=== PATIENT | male | born 1955 | race Caucasian/White ===

== ENCOUNTER 2020-02-21 14:18 | Emergency (ER) | payer MEDICARE, OTHER, MEDICAID ==
[~2020-02-21] VITALS: Ht 175.3 cm; Wt 84.4 kg
--- OUTSIDE RECORDS SUMMARY | ~2020-02-21 | XMS | Encounter Summary ---
Demographics + + + | Address | [address] | | | [place] [address] | + + + | Home Phone | | + + + | Preferred Language | Unknown | + + + | Marital Status | | + + + | Christian Affiliation | Unknown | + + + | Race | Unknown | + + + | Ethnic Group | Unknown | + + + Author + + + | Author | [facility] | | | and [place] | + + + | Organization | [facility] | | | and [place] | + + + | Address | Unknown | + + + | Phone | Unavailable | + + + Support + + + + + | Name | Relationship | Address | Phone | + + + + + | Nannette Ramsey | [address] | [address] | | | | [place] | | | | | [place] [address] | | + + + + + Care Team Providers + +------+ + | Care Ed Physicians Name | Role | Phone | + +------+ + | Josie Moffett PA-C | PCP | | + +------+ + Encounter Details +--------+ + + + + | Date | Type | Department | Care Team | Description | +--------+ + + + + | 02/12/ | Orders Only | [facility] | Joseluis Shaffer MD | | | 2014 | | VASCULAR SURGERY | [address] | | | | | [address] | [place], [place] | | | | | [address] | [address] | | | | | [place], [place] | [phone] | | | | | [address] | | | | | | [phone] | | | +--------+ + + + [...] on file | | + + + + + + + | Job Start Date | Occupation | Industry | + + + + | Not on file | Not on file | Not on file | + + + + + + + + | Travel History | Travel Start | Travel End | + + + + + + | No recent travel history available. | + + documented as of this encounter [...]
--- OUTSIDE RECORDS SUMMARY | ~2020-02-21 | XMS | Encounter Summary ---
Demographics + + + | Address | [address] | | | [place] [address] | + + + | Home Phone | | + + + | Preferred Language | Unknown | + + + | Marital Status | | + + + | Restorationist Affiliation | Unknown | + + + | Race | Unknown | + + + | Ethnic Group | Unknown | + + + Author + + + | Author | [facility] | | | and [place] | + + + | Organization | [facility] | | | and [...] [place] | | | | | [place] [address] | | + + + + + Care Team Providers + +------+ + | Care Sales Trader Name | Role | Phone | + +------+ + | Josie Moffett PA-C | PCP | | + +------+ + Encounter Details +--------+ + + + + | Date | Type | Department | Care Team | Description | +--------+ + + + + | 02/12/ | Orders Only | [facility] | Joseluis Shaffer MD | | | 2014 | | VASCULAR SURGERY | [address] | | | | | [address] | [place], [place] | | | | | [address] | [address] | | | | | [place], [place] | [phone] | | | | | [address] | | | | | | [phone] | | | +--------+ + + + [...] + +--------+ + + + | VAS LOWER EXTREMITY | Routin | 12/06/2014 | | Results for this | | ARTERIES BILATERAL | e | 3:00 PM | | procedure are in the | | | | PST | | results section. | + +--------+ + + + documented in this encounter Results VAS Lower Extremity Arteries Bilateral (12/06/2014 3:00 PM PST) + + | Specimen | + + | | + + + + + | Impressions | Performed At | + + + | IMPRESSION : 1. Some narrowing along the mid left SFA stent, but | | | probably less than 50% 2. 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 In circumstances | | | where there is rest pain or tissue loss, typically interventional | | | consultation is recommended. In circumstances where there is | | | claudication, CTA or MRI is appropriate - especially if an | | | underlying treatable lesion is suspect. Ankle brachial index | | | evaluation can compliment this screening modality. Electronically | | | signed by Bowen Root MD on 12/06/2014 3:48 PM | | + + + + + + | Narrative | Performed At | + + + | HISTORY: 59 -year old male with vascular disease, prior | | | thromboembolism and stent TECHNIQUE : Screening ultrasound of the | | | bilateral lower extremity arterial systems. True duplex examination | | | with grayscale, color flow and Doppler imaging. No prior study for | | | comparison FINDINGS : Left system Velocities: Peak | | | velocity is 182 cm/s, mid femoral artery. No velocity doublings. | | | Correlates with a stent, probably represents a luminal narrowing but | | | less than 50% Visual inspection: No high-grade or preocclusive | | | lesion Waveforms: Triphasic and biphasic throughout Right | | | system Velocities: Peak velocity of 100 cm above the knee, | | | anterior tibial vessel is 384 cm/s however. Visual inspection: | | | Reveals atherosclerotic vascular disease multifocal plaque, but no | | | preocclusive lesion Waveforms: Are biphasic and triphasic | | | throughout Other salient or incidental findings : none. | | + + + + + | Procedure Note | + + | Lemuel, Rad Conversion - 06/15/2019 11:50 PM PDT HISTORY: 59 -year old male with | | vascular disease, prior thromboembolism and stent TECHNIQUE : Screening ultrasound of | | the bilateral lower extremity arterial systems. True duplex examination with grayscale, | | color flow and Doppler imaging. No prior study for comparison FINDINGS : Left system | | Velocities: Peak velocity is 182 cm/s, mid femoral artery. No velocity doublings. | | Correlates with a stent, probably represents a luminal narrowing but less than 50% | | Visual inspection: No high-grade or preocclusive lesion Waveforms: Triphasic and | | biphasic throughout Right system Velocities: Peak velocity of 100 cm above the knee, | | anterior tibial vessel is 384 cm/s however. Visual inspection: Reveals atherosclerotic | | vascular disease multifocal plaque, but no preocclusive lesion Waveforms: Are biphasic | | and triphasic throughout Other salient or incidental findings : none. IMPRESSION: | | IMPRESSION : 1. Some narrowing along the mid left SFA stent, but probably less than 50% | | 2. Velocity elevation of the right anterior tibial artery, likely evidence of | | significant tributary disease below the right knee Note : The clinical impression is at | | least as important as this screening modality. In circumstances where there is rest | | pain or tissue loss, typically interventional consultation is recommended. In | | circumstances where there is claudication, CTA or MRI is appropriate - especially if an | | underlying treatable lesion is suspect. Ankle brachial index evaluation can compliment | | this screening modality. | | 3:48 PM | |Visual inspection: Reveals atherosclerotic vascular disease multifocal plaque, but no preoc clusive lesion | | | |Waveforms: Are biphasic and triphasic throughout | | | |Other salient or incidental findings : none. | | | |IMPRESSION: | |IMPRESSION : | | | |1. Some narrowing along the mid left SFA stent, but probably less than 50% | | | |2. Velocity elevation of the right anterior tibial artery, likely evidence of significant t ributary disease below the right knee | | | | | |Note : The clinical impression is at least as important as this screening modality. In circ umstances where there is rest pain or tissue loss, typically interventional consultation is recommended. In circumstances | |where there is claudication, CTA or MRI | |is appropriate - especially if an underlying treatable lesion is suspect. Ankle brachial in dex evaluation can compliment this screening modality. | | | | | + + documented in this encounter Visit Diagnoses Not on filedocumented in this encounter"
--- OUTSIDE RECORDS SUMMARY | ~2020-02-21 | XMS | Clinical Summary ---
Demographics + + + | Address | [address] | | | [place] [address] | + + + | Home Phone | | + + + | Preferred Language | Unknown | + + + | Marital Status | | + + + | Yazdanism Affiliation | Unknown | + + + | Race | Unknown | + + + | Ethnic Group | Unknown | + + + Author + + + | Author | [facility] | | | and [place] | + + + | Organization | [facility] | | | and [...] [place], | | | | | [place] [address] | | + + + + + Care Team Providers + +------+ + | Care Hemotherapist Name | Role | Phone | + [...] recent travel history available. | + + Last Filed Vital Signs Not on file Plan of Treatment + + + + + | Health Maintenance | Due Date | Last Done | Comments | + + + + + | Vaccine: | | | | | Dtap/Tdap/Td (1 - | 4 | | | | Tdap) | | | | + + + + + | Vaccine: Zoster (1 | | | | | of 2) | 3 | | | + + + + + | Vaccine: | | | | | Pneumococcal 65+ (1 | 8 | | | | of 2 - PCV13) | | | | + + + + + | Vaccine: Influenza | | | | | (Season Ended) | 0 | | | + + + + + Results Not on filefrom Last 3 [...] +--------+ +---------+------+ | [facility] | HEALTH | [id number] | 06/25/20 | [phone] | | PPO | | | COMP [...] [birth year] | | [address] | | 1955 | [phone] | [address] [place], | | | [place] | | | [address] ([address]) | [place] [address] | + +--------+ +--------+ + + Advance Directives + + + + + | Type | Date Recorded | Patient | Explanation | | | | Time Study Statistician | | + + + + + | Power of | | | | | Night Worker | | | | + + + + + | Advance | | | | | Directive | | | | + + + + +"
--- OUTSIDE RECORDS SUMMARY | ~2020-02-21 | XMS | Encounter Summary ---
Demographics + + + | Address | [address] | | | [place] [address] | + + + | Home Phone | | + + + | Preferred Language | Unknown | + + + | Marital Status | | + + + | Judaism Affiliation | Unknown | + + + | Race | Unknown | + + + | Ethnic Group | Unknown | + + + Author + + + | Author | [facility] | | | and [place] | + + + | Organization | [facility] | | | and [...] [place], | | | | | [place] [address] | | + + + + + Care Team Providers + +------+ + | Care Edge Burnisher Name | Role | Phone | + +------+ + PCP | Unavailable | + +------+ + Encounter Details +--------+ + + + + | Date | Type | Department | Care Team | Description | +--------+ + + + + | 03/30/ | Hospital | LOCATED WITHIN [facility] | [place], | | | 2012 - | Encounter | [facility] | Marisol Lopez, | | | | | CARE FLOOR [address] | [address] | | | 04/01/ | | [address] | [address], | | | 2012 | | [place], [place] | [place] [address] | | | | | [address] | [phone] | | | | | [phone] | | | +--------+ + + + + Social History + +-------+ +--------+------+ | Tobacco Use | Types | Packs/Day | Years | Date | | | | | Used | | + +-------+ +--------+------+ | Never Assessed | | | | | + +-------+ [...] + + documented as of this encounter Discharge Summaries Marisol Pedraza MD - 04/01/2013 9:24 AM PDTFormatting of this note might be dif ferent from the original. Discharge Summaries by Marisol Pedraza MD at 04/01/13923 Author: Marisol Pedraza MD Service: (none) Author Type: Physician Filed: 04/14/13 1328 Date of Service: 04/01/13923 Status: Signed Statue Carver: Marisol Pedraza MD (Physician) Related Notes: Original Note by Marisol Pedraza MD (Physician) filed at 04/01/1307 19 DIAGNOSIS Acute anterior myocardial infarction. REASON FOR ADMISSION This is a 57-year-old white male with no prior medical history who began experiencing subst ernal heaviness earlier on the day of admission, presented to the emergency room in [facility]. He was shown to have an ST elevation anterior CO. He was heparinized, placed on a nitrogl ycerin drip with some improvement in his chest pain and transported here by ambulance. He wa s taken straight to the catheterization lab. HOSPITAL COURSE In the catheterization lab he was found to have a totally occluded left anterior descending which was opened and stented with drug-eluting stents with moderate difficulty. He had a pe ak CPK of 4200 and no recurrent chest discomfort. He was felt ready for discharge. Such is d one today. DISCHARGE MEDICATIONS 1. Aspirin 325 mg p.o. daily. 2. Plavix 75 mg p.o. daily. 3. No beta-lionel because of hypotension. 4. No lipid-lowering therapy because of unknown baseline. We will assess that as an outpati ent. documented in this encounter Progress Notes Conversion Transaction, Provider Unknown - 04/01/2013 12:09 PM PDTFormatting of this note m ight be different from the original. Progress Notes by Morenita Sandhu RN at 04/01/13 1209 Author: Morenita Sandhu RN Service: (none) Author Type: Registered Nurse Filed: 04/01/13 1210 Date of Service: 04/01/13 1209 Status: Signed Statue Carver: Morenita Sandhu RN (Registered Nurse) Discharge information reviewed with patient and family, all parties verbalized virgil g. Pt being discharged to private home via private vehicle in stable condition. Silvestre REBOLLEDO onver romain Transaction, Provider Unknown - 03/31/2013 10:15 AM PDT Progress Notes by Morenita Sandhu RN at 03/31/13 1015 Author: Morenita Sandhu RN Service: (none) Author Type: Registered Nurse Filed: 03/31/13 1016 Date of Service: 03/31/13 1015 Status: Signed Statue Carver: Morenita Crader, RN (Registered Nurse) Pt with 8 beats VTACH asymptomatic will continue to monitor. Silvestre RN Marisol Byrd MD - 03/31/2013 8:38 AM PDT Progress Notes by Marisol Pedraza MD at 03/31/13 0838 Author: Marisol Pedraza MD Service: (none) Author Type: Physician Filed: 03/31/1339 Date of Service: 03/31/13837 Status: Signed Statue Carver: Marisol Pedraza MD (Physician) Feels well. NO CP. PK >4000. Increase activity. VSS onversion Transaction, Provider Unknown - 03/30/2013 8:09 PM PDTFormatting of this note might be dif ferent from the original. Progress Notes by Rodolfo Faye RPH at 03/30/132008 Author: Rodolfo Faye RPH Service: (none) Author Type: Pharmacist Filed: 03/30/132008 Date of Service: 03/30/132008 Status: Signed Statue Carver: Rodolfo Faye RPH (Pharmacist) Note ccl 63.1ml/min meds reviewed Pharmacy will follow rdc 2008 Marisol Byrd MD - 03/30/2013 6:46 PM PDT Progress Notes by Marisol Pedraza MD at 03/30/131845 Author: Marisol Pedraza MD Service: (none) Author Type: Physician Filed: 03/30/131845 Date of Service: 03/30/131845 Status: Signed Statue Carver: Marisol Pedraza MD (Physician) Cath done and dictated. MARCO A to LAD documented in this encounter Plan of Treatment Not on filedocumented as of this encounter Procedures + +--------+ + + + | Procedure Name | Priori | Date/Time | Associated Diagnosis | Comments | | | ty | | | | + +--------+ + + + | ECG 12 LEAD | Routin | 03/31/2013 | | Results for this | | | e | 5:03 AM | | procedure are in the | | | | PDT | | results section. | + +--------+ + + + | CV CARDIAC PROCEDURE | Routin | 03/30/2013 | | Results for this | | | e | 6:44 PM | | procedure are in the | | | | PDT | | results section. | + +--------+ + + + | CV CARDIAC PROCEDURE | Routin | 03/30/2013 | | Results for this | | | e | 6:44 PM | | procedure are in the | | | | PDT | | results section. | + +--------+ + + + documented in this encounter Results ECG 12 lead (03/31/2013 5:03 AM PDT) + + + + + + | Component | Value | Ref Range | Performed | Pathologist | | | | | At | Signature | + + + + + + | DIAGNOSIS: | Normal sinus | | EXTERNAL | | | | rhythmAnteroseptal | | LAB | | | | infarct likely recent | | | | | | ACUTE CO / STEMI | | | | | | Abnormal ECGNo | | | | | | previous ECGs | | | | | | availableConfirmed by | | | | | | ISAAK DOWNS ([id number]) on | | | | | | 04/01/2013 2:26:32 PM | | | | + + + + + + + + | Specimen | + + | | + + + + + | Narrative | Performed At | + + + | Historically [facility] [place] [facility] | EXTERNAL LAB | + + + + +---------+ + + | Performing | Address | City/State/Zipcode | Phone Number | | Organization | | | | + +---------+ + + | EXTERNAL LAB | | | | + +---------+ + + CV CARDIAC PROCEDURE (03/30/2013 6:44 PM PDT) + + | Specimen | + + | | + + + + + | Narrative | Performed At | + + + | | | | | | | PROCEDURES 1. Left heart catheterization. 2. Coronary angiography. | | | 3. Intracoronary stent implantation to left anterior descending | | | coronary artery. RESULTS 1. Aortic pressure is 106/74, with a | | | mean of 87. 2. Left ventricular pressure is 113/12, with an EDP of | | | 30. ARTERIOGRAPHY 1. Left main coronary artery is normal. 2. | | | Left circumflex shows minor nonobstructive disease. 3. Left anterior | | | descending is totally occluded just after the takeoff of a very high | | | first diagonal and large septal penetrator. 4. Right coronary artery | | | is angiographically unremarkable. LEFT VENTRICULOGRAM Left | | | ventriculogram done after intervention shows mild anterior | | | hypokinesis, overall ejection fraction is normal at 60%. | | | IMPRESSION Severe 1 vessel coronary disease. I elected to intervene | | | upon this. DESCRIPTION OF PROCEDURE A 6-Tongan XB LAD 3.5 guide | | | catheter was placed in the left main coronary os and an 0.014 Weight Guesser | | | 50 guidewire was advanced down the left anterior descending with | | | considerable difficulty. When I had felt that I had crossed the | | | lesion I took a 2 x 15 mm [place] angioplasty balloon and crossed about | | | 1 cm beyond the area of total occlusion. I could not easily get any | | | farther. I inflated it there to about 6 atmospheres and made no | | | improvement. I withdrew the wire and repositioned. I found another | | | channel and I felt the wire was pretty safely in a septal penetrator, | | | and so I took the same balloon down and advanced it, this time, much | | | more easily beyond the lesion. Inflated it up to 10 atmospheres for | | | 20 seconds. This did restore flow throughout the distal vessel which | | | was diffusely diseased in the midportion. I repositioned the wire out | | | the distal LAD and took the same balloon and inflated it in several | | | positions between 6 and 8 atmospheres for 10 to 20 seconds each. | | | There was still significant residual stenosis throughout so I took | | | 200 mcg of IV nitroglycerin, placed it intracoronary, and there was | | | some but not much improvement. A 2.75 x 28 mm Promus Element stent | | | catheter was advanced to the distal portion of the lesion. Position | | | with cine assistance, inflated up to 11 atmospheres for 20 seconds, | | | deflated, re-inflated 10 atmospheres for 10 seconds, then smooth | | | withdrawn. This did improve the distal portion, however there is | | | still significant stenosis proximally, so a 3 x 16 mm Promus Element | | | stent catheter was positioned just to abut the previously placed | | | stent in the proximal to midportion of the LAD. Inflated again up to | | | 11 atmospheres for 20 seconds, deflated. The balloon was slightly | | | advanced so it covered both stents and inflated up to 10 atmospheres | | | for 10 seconds. Hand injection showed excellent results with DENA | | | grade III flow at that time. There was still an issue of some | | | haziness in the proximal LAD, so I took the same balloon that I had | | | just used to inflate the 3-0 stent and inflated it more proximally to | | | 6 atmospheres for 20 seconds and then withdrew it. Hand injection | | | showed no change whatsoever. There was still DENA grade III flow so I | | | decided to leave that alone. Pharmacologically he came in on a | | | heparin drip. He was given an additional 2000 units with the sheath | | | insertion. ACT in the diagnostic portion was 199 seconds. He was given | | | an additional 3000 units of intravascular heparin. ACT is pending | | | postprocedure. He was begun on a double bolus and drip of Integrilin | | | at the beginning of the interventional portion of the case and orally | | | loaded with Plavix at the termination of the case. ESTIMATED | | | BLOOD LOSS Less than 50 mL. Read by MARISOL PEDRAZA MD | | | 03/30/2013 06:39 P | | + + + + + | Procedure Note | + + | Avinash Hdez - 06/16/2019 6:31 PM PDT | | | | PROCEDURES | | 1. Left heart catheterization. | | 2. Coronary angiography. | | 3. Intracoronary stent implantation to left anterior descending coronary | | artery. | | | | RESULTS | | 1. Aortic pressure is 106/74, with a mean of 87. | | 2. Left ventricular pressure is 113/12, with an EDP of 30. | | | | ARTERIOGRAPHY | | 1. Left main coronary artery is normal. | | 2. Left circumflex shows minor nonobstructive disease. | | 3. Left anterior descending is totally occluded just after the takeoff of | | a very high first diagonal and large septal penetrator. | | 4. Right coronary artery is angiographically unremarkable. | | | | LEFT VENTRICULOGRAM | | Left ventriculogram done after intervention shows mild anterior | | hypokinesis, overall ejection fraction is normal at 60%. | | | | IMPRESSION | | Severe 1 vessel coronary disease. I elected to intervene upon this. | | | | DESCRIPTION OF PROCEDURE | | A 6-Tongan XB LAD 3.5 guide catheter was placed in the left main coronary | | os and an 0.014 Weight Guesser 50 guidewire was advanced down the left anterior | | descending with considerable difficulty. When I had felt that I had | | crossed the lesion I took a 2 x 15 mm [place] angioplasty balloon and crossed | | about 1 cm beyond the area of total occlusion. I could not easily get any | | farther. I inflated it there to about 6 atmospheres and made no | | improvement. I withdrew the wire and repositioned. I found another channel | | and I felt the wire was pretty safely in a septal penetrator, and so I | | took the same balloon down and advanced it, this time, much more easily | | beyond the lesion. Inflated it up to 10 atmospheres for 20 seconds. This | | did restore flow throughout the distal vessel which was diffusely diseased | | in the midportion. I repositioned the wire out the distal LAD and took the | | same balloon and inflated it in several positions between 6 and 8 | | atmospheres for 10 to 20 seconds each. There was still significant | | residual stenosis throughout so I took 200 mcg of IV nitroglycerin, placed | | it intracoronary, and there was some but not much improvement. A 2.75 x 28 | | mm Promus Element stent catheter was advanced to the distal portion of the | | lesion. Position with cine assistance, inflated up to 11 atmospheres for | | 20 seconds, deflated, re-inflated 10 atmospheres for 10 seconds, then | | smooth withdrawn. | | | | This did improve the distal portion, however there is still significant | | stenosis proximally, so a 3 x 16 mm Promus Element stent catheter was | | positioned just to abut the previously placed stent in the proximal to | | midportion of the LAD. Inflated again up to 11 atmospheres for 20 seconds, | | deflated. The balloon was slightly advanced so it covered both stents and | | inflated up to 10 atmospheres for 10 seconds. Hand injection showed | | excellent results with DENA grade III flow at that time. There was still | | an issue of some haziness in the proximal LAD, so I took the same balloon | | that I had just used to inflate the 3-0 stent and inflated it more | | proximally to 6 atmospheres for 20 seconds and then withdrew it. Hand | | injection showed no change whatsoever. There was still DENA grade III flow | | so I decided to leave that alone. Pharmacologically he came in on a | | heparin drip. He was given an additional 2000 units with the sheath | | insertion. ACT in the diagnostic portion was 199 seconds. He was given an | | additional 3000 units of intravascular heparin. ACT is pending | | postprocedure. He was begun on a double bolus and drip of Integrilin at | | the beginning of the interventional portion of the case and orally loaded | | with Plavix at the termination of the case. | | | | ESTIMATED BLOOD LOSS | | Less than 50 mL. | | Read by MARISOL PEDRAZA MD 03/30/2013 06:39 P | | | | | + + CV CARDIAC PROCEDURE (03/30/2013 6:44 PM PDT) + + | Specimen | + + | | + + + + + | Narrative | Performed At | + + + | | | | | | | PROCEDURES 1. Left heart catheterization. 2. Coronary angiography. | | | 3. Intracoronary stent implantation to left anterior descending | | | coronary artery. RESULTS 1. Aortic pressure is 106/74, with a | | | mean of 87. 2. Left ventricular pressure is 113/12, with an EDP of | | | 30. ARTERIOGRAPHY 1. Left main coronary artery is normal. 2. | | | Left circumflex shows minor nonobstructive disease. 3. Left anterior | | | descending is totally occluded just after the takeoff of a very high | | | first diagonal and large septal penetrator. 4. Right coronary artery | | | is angiographically unremarkable. LEFT VENTRICULOGRAM Left | | | ventriculogram done after intervention shows mild anterior | | | hypokinesis, overall ejection fraction is normal at 60%. | | | IMPRESSION Severe 1 vessel coronary disease. I elected to intervene | | | upon this. DESCRIPTION OF PROCEDURE A 6-Tongan XB LAD 3.5 guide | | | catheter was placed in the left main coronary os and an 0.014 Weight Guesser | | | 50 guidewire was advanced down the left anterior descending with | | | considerable difficulty. When I had felt that I had crossed the | | | lesion I took a 2 x 15 mm [place] angioplasty balloon and crossed about | | | 1 cm beyond the area of total occlusion. I could not easily get any | | | farther. I inflated it there to about 6 atmospheres and made no | | | improvement. I withdrew the wire and repositioned. I found another | | | channel and I felt the wire was pretty safely in a septal penetrator, | | | and so I took the same balloon down and advanced it, this time, much | | | more easily beyond the lesion. Inflated it up to 10 atmospheres for | | | 20 seconds. This did restore flow throughout the distal vessel which | | | was diffusely diseased in the midportion. I repositioned the wire out | | | the distal LAD and took the same balloon and inflated it in several | | | positions between 6 and 8 atmospheres for 10 to 20 seconds each. | | | There was still significant residual stenosis throughout so I took | | | 200 mcg of IV nitroglycerin, placed it intracoronary, and there was | | | some but not much improvement. A 2.75 x 28 mm Promus Element stent | | | catheter was advanced to the distal portion of the lesion. Position | | | with cine assistance, inflated up to 11 atmospheres for 20 seconds, | | | deflated, re-inflated 10 atmospheres for 10 seconds, then smooth | | | withdrawn. This did improve the distal portion, however there is | | | still significant stenosis proximally, so a 3 x 16 mm Promus Element | | | stent catheter was positioned just to abut the previously placed | | | stent in the proximal to midportion of the LAD. Inflated again up to | | | 11 atmospheres for 20 seconds, deflated. The balloon was slightly | | | advanced so it covered both stents and inflated up to 10 atmospheres | | | for 10 seconds. Hand injection showed excellent results with DENA | | | grade III flow at that time. There was still an issue of some | | | haziness in the proximal LAD, so I took the same balloon that I had | | | just used to inflate the 3-0 stent and inflated it more proximally to | | | 6 atmospheres for 20 seconds and then withdrew it. Hand injection | | | showed no change whatsoever. There was still DENA grade III flow so I | | | decided to leave that alone. Pharmacologically he came in on a | | | heparin drip. He was given an additional 2000 units with the sheath | | | insertion. ACT in the diagnostic portion was 199 seconds. He was given | | | an additional 3000 units of intravascular heparin. ACT is pending | | | postprocedure. He was begun on a double bolus and drip of Integrilin | | | at the beginning of the interventional portion of the case and orally | | | loaded with Plavix at the termination of the case. ESTIMATED | | | BLOOD LOSS Less than 50 mL. Read by MARISOL PEDRAZA MD | | | 03/30/2013 06:39 P | | + + + + + | Procedure Note | + + | Lemuel, Avinash Conversion - 06/16/2019 6:31 PM PDT | | | | PROCEDURES | | 1. Left heart catheterization. | | 2. Coronary angiography. | | 3. Intracoronary stent implantation to left anterior descending coronary | | artery. | | | | RESULTS | | 1. Aortic pressure is 106/74, with a mean of 87. | | 2. Left ventricular pressure is 113/12, with an EDP of 30. | | | | ARTERIOGRAPHY | | 1. Left main coronary artery is normal. | | 2. Left circumflex shows minor nonobstructive disease. | | 3. Left anterior descending is totally occluded just after the takeoff of | | a very high first diagonal and large septal penetrator. | | 4. Right coronary artery is angiographically unremarkable. | | | | LEFT VENTRICULOGRAM | | Left ventriculogram done after intervention shows mild anterior | | hypokinesis, overall ejection fraction is normal at 60%. | | | | IMPRESSION | | Severe 1 vessel coronary disease. I elected to intervene upon this. | | | | DESCRIPTION OF PROCEDURE | | A 6-Tongan XB LAD 3.5 guide catheter was placed in the left main coronary | | os and an 0.014 Weight Guesser 50 guidewire was advanced down the left anterior | | descending with considerable difficulty. When I had felt that I had | | crossed the lesion I took a 2 x 15 mm [place] angioplasty balloon and crossed | | about 1 cm beyond the area of total occlusion. I could not easily get any | | farther. I inflated it there to about 6 atmospheres and made no | | improvement. I withdrew the wire and repositioned. I found another channel | | and I felt the wire was pretty safely in a septal penetrator, and so I | | took the same balloon down and advanced it, this time, much more easily | | beyond the lesion. Inflated it up to 10 atmospheres for 20 seconds. This | | did restore flow throughout the distal vessel which was diffusely diseased | | in the midportion. I repositioned the wire out the distal LAD and took the | | same balloon and inflated it in several positions between 6 and 8 | | atmospheres for 10 to 20 seconds each. There was still significant | | residual stenosis throughout so I took 200 mcg of IV nitroglycerin, placed | | it intracoronary, and there was some but not much improvement. A 2.75 x 28 | | mm Promus Element stent catheter was advanced to the distal portion of the | | lesion. Position with cine assistance, inflated up to 11 atmospheres for | | 20 seconds, deflated, re-inflated 10 atmospheres for 10 seconds, then | | smooth withdrawn. | | | | This did improve the distal portion, however there is still significant | | stenosis proximally, so a 3 x 16 mm Promus Element stent catheter was | | positioned just to abut the previously placed stent in the proximal to | | midportion of the LAD. Inflated again up to 11 atmospheres for 20 seconds, | | deflated. The balloon was slightly advanced so it covered both stents and | | inflated up to 10 atmospheres for 10 seconds. Hand injection showed | | excellent results with DENA grade III flow at that time. There was still | | an issue of some haziness in the proximal LAD, so I took the same balloon | | that I had just used to inflate the 3-0 stent and inflated it more | | proximally to 6 atmospheres for 20 seconds and then withdrew it. Hand | | injection showed no change whatsoever. There was still DENA grade III flow | | so I decided to leave that alone. Pharmacologically he came in on a | | heparin drip. He was given an additional 2000 units with the sheath | | insertion. ACT in the diagnostic portion was 199 seconds. He was given an | | additional 3000 units of intravascular heparin. ACT is pending | | postprocedure. He was begun on a double bolus and drip of Integrilin at | | the beginning of the interventional portion of the case and orally loaded | | with Plavix at the termination of the case. | | | | ESTIMATED BLOOD LOSS | | Less than 50 mL. | | Read by MARISOL PEDRAZA MD 03/30/2013 06:39 P | | | | | + + documented in this encounter Visit Diagnoses Not on filedocumented in this encounter"
--- OUTSIDE RECORDS SUMMARY | ~2020-02-21 | XMS | Clinical Summary ---
Demographics + + + | Address | [address] | | | [place] [address] | + + + | Home Phone | | + + + | Preferred Language | Unknown | + + + | Marital Status | | + + + | Denominational Affiliation | Unknown | + + + | Race | Unknown | + + + | Ethnic Group | Unknown | + + + Author + + + | Author | [facility] | | | and [place] | + + + | Organization | [facility] | | | [...] [place], | | | | | [place] [address] | | + + + + + Care Team Providers + +------+ + | Care Tier Over Name | Role | Phone | + [...] +--------+ +---------+------+ | [facility] | HEALTH | [phone] | 06/25/20 | [phone] | | PPO [...] | | | 9 (Home) | [place] [address] | + +--------+ +--------+ + + Advance Directives + + + + + | Type | Date Recorded | Patient | Explanation | | | | Administrative Support Clerk | | + + + + + | Power of | | | | | Clay Thrower | | | | + + + + + | Advance | | | | | Directive | | | | + + + + +"
--- OUTSIDE RECORDS SUMMARY | ~2020-02-21 | XMS | Clinical Summary ---
Demographics + + + | Address | [address] | | | [place] [address] | + + + | Home Phone | | + + + | Preferred Language | Unknown | + + + | Marital Status | Single | + + + | Jain Affiliation | Unknown | + + + | Race | Unknown | + + + | Ethnic Group | Unknown | + + + Author + + + | Author | [facility] (Historical as of | | | 06-10-19) | + + + | Organization | [facility] (Historical as of | | | 06-10-19) | + + + | Address | Unknown | + + + | Phone | Unavailable | + + + Support + + + + + | Name | Relationship | Address | Phone | + + + + + | Jennie Molina | ECON | [address] | | | | | [address] | | | | | [address] | | + + + + + | Detailed,Message | ECON | Unknown | | + + + + + Care Team Providers + +------+ + | Care Wood Hacker Name | Role | Phone | + +------+ + | Josie Moffett PA-C | PP | Unavailable | + +------+ + Allergies No Known Allergies Current Medications + + +-------+---------+------+------+-------+ | Prescription | Sig. | Disp. | Refills | Star | End | Statu | | | | | | t | Date | s | | | | | | Date | | | + + +-------+---------+------+------+-------+ | metoprolol | Take 25 mg by mouth | | | | | Activ | | (LOPRESSOR) 25 MG | 2 (two) times daily. | | | | | e | | tablet | | | | | | | + + +-------+---------+------+------+-------+ | lisinopril | Take 5 mg by mouth | | | | | Activ | | (ZESTRIL) 5 MG | daily. | | | | | e | | tablet | | | | | | | + + +-------+---------+------+------+-------+ | atorvastatin | Take 20 mg by mouth | | | | | Activ | | (LIPITOR) 20 MG | nightly. | | | | | e | | tablet | | | | | | | + + +-------+---------+------+------+-------+ | warfarin | Take 5 mg by mouth | | | | | Activ | | (COUMADIN) 5 MG | daily. | | | | | e | | tablet | | | | | | | + + +-------+---------+------+------+-------+ Active Problems Not on file Social History + +-------+ +--------+------+ | Tobacco Use | Types | Packs/Day | Years | Date | | | | | Used | | + +-------+ +--------+------+ | Current Every Day | | 1.5 | 50 | | | Smoker | | | | | + +-------+ +--------+------+ + + +---------+ + | Alcohol Use | Drinks/We | oz/Week | Comments | | | ek | | | + + +---------+ + | No | | | | + + +---------+ + + + + | Sex Assigned at | Date Recorded | | | | + + + | Not on file | | + + + Last Filed Vital Signs + + + + | Vital Sign | Reading | Time Taken | + + + + | Blood Pressure | 147/83 | 12/06/2014 3:51 PM PST | + + + + | Pulse | 51 | 12/06/2014 3:51 PM PST | + + + + | Temperature | 36.5 C (97.7 F) | 12/06/2014 3:51 PM PST | + + + + | Respiratory Rate | 18 | 04/01/2013 11:00 AM PDT | + + + + | Oxygen Saturation | 97% | 08/16/2014 10:53 AM PDT | + + + + | Inhaled Oxygen | - | - | | Concentration | | | + + + + | Weight | 74.8 kg (165 lb) | 12/06/2014 3:51 PM PST | + + + + | Height | 175.3 cm (5' 9.02") | 03/30/2013 6:57 PM PDT | + + + + | Body Mass Index | 24.35 | 12/06/2014 3:51 PM PST | + + + + Plan of Treatment + + + + [...] | | | | | Pneumococcal 65+ | 8 | | | | Low/Medium Risk (1 | | | | | of 2 - PCV13) | | | | + + + + + | Vaccine: Influenza | | | | | (Season Ended) | 0 | | | + + + + + Results Not on filefrom Last 3 Months Insurance + +--------+ +------+-------+---------+ | Payer | Benefi | Subscriber | Type | Phone | Address | | | t Plan | ID | | | | | | / | | | | | | | Group | | | | | + +--------+ +------+-------+---------+ | [employer] | [employer] | [id number] | | | | | | WORK | | | | | + +--------+ +------+-------+---------+ + +--------+ +--------+ + + | Guarantor Name | Accoun | Relation to | Date | Phone | Billing Address | | | t Type | Patient | of | | | | | | | | | | + +--------+ +--------+ + + | JENNIE MOLINA | Person | Self | [birth year] | Home: | [address] | | | [place] | | 1955 | [phone] | [address] [place] | | | [place] | | | [phone] | [phone] | + +--------+ +--------+ + +
--- OUTSIDE RECORDS SUMMARY | ~2020-02-21 | XMS | Encounter Summary ---
Demographics + + + | Address | [address] | | | [place] [address] | + + + | Home Phone | | + + + | Preferred Language | Unknown | + + + | Marital Status | | + + + | Protestant Affiliation | Unknown | + + + | Race | Unknown | + + + | Ethnic Group | Unknown | + + + Author + + + | Author | [facility] | | | and [place] | + + + | Organization | [facility] | | [...] [place] | | | | | [place] [address] | | + + + + + Care Team Providers + +------+ + | Care Mainframe Systems Programmer Name | Role | Phone | + +------+ + | Josie Moffett PA-C | PCP | | + +------+ + Encounter Details +--------+ + + + + | Date | Type | Department | Care Team | Description | +--------+ + + + + | 02/12/ | Orders Only | [facility] | Joseluis Shaffer MD | | | 2014 | | VASCULAR SURGERY | [address] | | | | | [address] | [place], [place] | | | | | [address] | [address] | | | | | [place], [place] | [phone] | | | | | [address] | | | | | | [phone] | | | +--------+ + + + [...]
--- OUTSIDE RECORDS SUMMARY | ~2020-02-21 | XMS | Clinical Summary ---
Demographics + + + | Address | [address] | | | [place] [address] | + + + | Home Phone | | + + + | Preferred Language | Unknown | + + + | Marital Status | Single | + + + | Latter Day Affiliation | Unknown | + + + | Race | Unknown | + + + | Ethnic Group | Unknown | + + + Author + + + | Author | [facility] (Historical as of | | | 06-10-19) | + + + | Organization | [facility] (Historical as of | | | [...] [address] | | | | | [address] | | + + + + + | Detailed,Message | ECON | Unknown | | + + + + + Care Team Providers + +------+ + | Care Scientist Immunology Name | Role | Phone | + [...] +------+-------+---------+ | [employer] | [employer] | [id number] | | | | | | WORK | | | | | + +--------+ +------+-------+---------+ + +--------+ +--------+ + + | Guarantor Name | Accoun | Relation to | Date | Phone | Billing Address | | | t Type | Patient | of | | | | | | | | | | + +--------+ +--------+ + + | JENNEI MOLINA | Person | Self | [birth year] | Home: | [address] | | | [place] | | 1955 | [phone] | [address] [place] | | | [place] | | | [phone] | + +--------+ +--------+ + +
--- OUTSIDE RECORDS SUMMARY | ~2020-02-21 | XMS | Encounter Summary ---
Demographics + + + | Address | [address] | | | [place] [address] | + + + | Home Phone | | + + + | Preferred Language | Unknown | + + + | Marital Status | | + + + | Nondenominational Affiliation | Unknown | + + + | Race | Unknown | + + + | Ethnic Group | Unknown | + + + Author + + + | Author | [facility] | | | and [place] | + + + | Organization | [facility] | | | [...] [place], | | | | | [place] [address] | | + + + + + Care Team Providers + +------+ + | Care Eyelet Maker Name | Role | Phone | + +------+ + PCP | Unavailable | + +------+ + Encounter Details +--------+ + + + + | Date | Type | Department | Care Team | Description | +--------+ + + + + | 03/30/ | Hospital | [facility] | [place], | | | 2012 - | Encounter | [facility] | Marisol Lopez, | | | | | CARE [address] | [address] | | | 04/01/ | | [address] | [address] [place], | | | 2012 | | [place], [place] | [place] [address] | | | | | [address] | [phone] | | | | | [phone] | | | +--------+ + + + [...] 1328 Date of Service: 04/01/13923 Status: Signed Tactical Debriefer Officer: Marisol Pedraza MD (Physician) Related Notes: Original Note by Marisol Pedraza MD (Physician) filed at 04/01/1307 19 DIAGNOSIS Acute anterior myocardial infarction. REASON FOR ADMISSION This is a 57-year-old white male with no prior medical history who began experiencing subst ernal heaviness earlier on the day of admission, presented to the emergency room in [facility]. He was shown to have an ST elevation anterior [place]. He was heparinized, placed on a nitrogl [...] Date of Service: 04/01/13 1209 Status: Signed Tactical Debriefer Officer: Morenita Sandhu RN (Registered Nurse) Discharge information [...] Date of Service: 03/31/13 1015 Status: Signed Tactical Debriefer Officer: Morenita Crader, RN (Registered Nurse) Pt with 8 beats VTACH asymptomatic will continue to monitor. Silvestre RN Marisol Byrd MD - 03/31/2013 8:38 AM PDT Progress Notes by Marisol Pedraza MD at 03/31/13 0838 Author: Marisol Pedraza MD Service: (none) Author Type: Physician Filed: 03/31/1339 Date of Service: 03/31/13837 Status: Signed Tactical Debriefer Officer: Marisol Perdaza MD (Physician) Feels well. NO CP. PK >4000. Increase activity. VSS onversion Transaction, Provider Unknown - 03/30/2013 8:09 PM PDTFormatting of this note might be dif ferent from the original. Progress Notes by Rodolfo Faye RPH at 03/30/132008 Author: Rodolfo Faye RPH Service: (none) Author Type: Pharmacist Filed: 03/30/132008 Date of Service: 03/30/132008 Status: Signed Tactical Debriefer Officer: Rodolfo Faye RPH (Pharmacist) Note ccl 63.1ml/min meds reviewed Pharmacy will follow rdc 2008 Marisol Byrd MD - 03/30/2013 6:46 PM PDT Progress Notes by Marisol Pedraza MD at 03/30/131845 Author: Marisol Pedraza MD Service: (none) Author Type: Physician Filed: 03/30/131845 Date of Service: 03/30/131845 Status: Signed Tactical Debriefer Officer: Marisol Pedraza MD (Physician) Cath done and [...] | | | | | | ACUTE [place] / STEMI | | | | | [...] + + | Historically converted procedure from [facility] Epic environment | EXTERNAL LAB | + [...] | upon this. DESCRIPTION OF PROCEDURE A 6-Nepalese XB LAD 3.5 guide | | | catheter was placed in the left main coronary os and an 0.014 Tunnel Kiln Firer | | | 50 guidewire was advanced down the left anterior descending with | | | considerable difficulty. When I had felt that I had crossed the | | | lesion I took a 2 x 15 mm [place] angioplasty balloon and crossed about | | [...] | DESCRIPTION OF PROCEDURE | | A 6-Nepalese XB LAD 3.5 guide catheter was placed in the left main coronary | | os and an 0.014 Tunnel Kiln Firer 50 guidewire was advanced down the left anterior | | descending with considerable difficulty. When I had felt that I had | | crossed the lesion I took a 2 x 15 mm [place] angioplasty balloon and crossed | | about [...] | upon this. DESCRIPTION OF PROCEDURE A 6-Nepalese XB LAD 3.5 guide | | | catheter was placed in the left main coronary os and an 0.014 Tunnel Kiln Firer | | | 50 guidewire was advanced down the left anterior descending with | | | considerable difficulty. When I had felt that I had crossed the | | | lesion I took a 2 x 15 mm [place] angioplasty balloon and crossed about | | [...] | DESCRIPTION OF PROCEDURE | | A 6-Nepalese XB LAD 3.5 guide catheter was placed in the left main coronary | | os and an 0.014 Tunnel Kiln Firer 50 guidewire was advanced down the left anterior | | descending with considerable difficulty. When I had felt that I had | | crossed the lesion I took a 2 x 15 mm [place] angioplasty balloon and crossed | | about [...]
--- OUTSIDE RECORDS SUMMARY | ~2020-02-21 | XMS | Encounter Summary ---
Demographics + + + | Address | [address] | | | [place] [address] | + + + | Home Phone | | + + + | Preferred Language | Unknown | + + + | Marital Status | | + + + | Anabaptism Affiliation | Unknown | + + + | Race | Unknown | + + + | Ethnic Group | Unknown | + + + Author + + + | Author | [facility] | | | and [place] | + + + | Organization | [facility] | | | [...] [place] | | | | | [place] [address] | | + + + + + Care Team Providers + +------+ + | Care Printer Assistant Name | Role | Phone | + +------+ + | Josie Moffett PA-C | PCP | | + +------+ + Encounter Details +--------+ + + + + | Date | Type | Department | Care Team | Description | +--------+ + + + + | 02/12/ | Orders Only | [facility] | Joseluis Shaffer MD | | | 2014 | | VASCULAR SURGERY | [address] | | | | | [address] | [place], [place] | | | | | [address] | [address] | | | | | [place], [place] | [phone] | | | | | [address] | | | | | | [phone] | | | +--------+ + + + [...]
[~2020-02-21 14:18] MED LIST: BLOOD THINNER PO; CELEBREX200 MG PO; LORTAB 7.5-5001 EACH PO; ROBAXIN-750750 MG PO
[2020-02-21] MEDS ORDERED: METOPROLOL TART25 MG PO (14:26)
[2020-02-21] MEDS ORDERED: WARFARIN SODIUM5 MG PO (14:26)
[2020-02-21] MEDS ORDERED: ATORVASTATIN CA20 MG PO (14:26)
[2020-02-21] MEDS ORDERED: TRAZODONE HCL50 MG PO (14:26)
[2020-02-21] MEDS ORDERED: CYCLOBENZAPRINE10 MG PO (16:28)
== END 2020-02-21 16:34 | disposition home or self-care (01) ==
LOC: ED 14:18
DX: M54.5 Low back pain (principal); I25.2 Old myocardial infarction; F17.200 Nicotine dependence, unspecified, uncomplicated; Z79.899 Other long term (current) drug therapy
CPT/HCPCS: 99283

== ENCOUNTER 2020-08-12 12:27 | Emergency (ER) | payer MEDICARE, OTHER, MEDICAID ==
[~2020-08-12] VITALS: Ht 175.3 cm; Wt 84.4 kg
--- OUTSIDE RECORDS SUMMARY | ~2020-08-12 | XMS | Encounter Summary ---
Demographics + + + | Address | [address] | | | [place] [address] | + + + | Home Phone | | + + + | Preferred Language | Unknown | + + + | Marital Status | | + + + | Taoism Affiliation | Unknown | + + + | Race | White | + + + | Ethnic Group | Not or | + + + Author + + + | Author | [facility] | | | and [place] | + + + | Organization | [facility] | | | and [place] | + + + | Address | Unknown | + + + | Phone | Unavailable | + + + Support + + + + + | Name | Relationship | Address | Phone | + + + + + | Nannette Ramsey | ECON | [address] | | | | [place], | | | | | [place] [address] | | + + + + + Care Team Providers + +------+ + | Care Certified Health Education Specialist Name | Role | Phone | + +------+ + | Josie Moffett PA-C | PCP | | + +------+ + Encounter Details +--------+ + + + + | Date | Type | Department | Care Team | Description | +--------+ + + + + | 12/06/ | Orders Only | [facility] | Joseluis Shaffer MD | | | 2015 | | VASCULAR SURGERY | [address] | | | | | [address] | [place], [place] | | | | | [address] | [address] | | | | | [place], [place] | [phone] | | | | | [address] | | | | | | [phone] | | | +--------+ + + + + Social History + +-------+ +--------+------+ | Tobacco Use | Types | Packs/Day | Years | Date | | | | | Used | | + +-------+ +--------+------+ | Current Every Day | | 1.5 | | | | Smoker | | | | | + +-------+ +--------+------+ + + + | Sex Assigned at | Date Recorded | | | | + + + | Not on file | | + + + documented as of this encounter Plan of Treatment Not on filedocumented as of this encounter Procedures + +--------+ + + + | Procedure Name | Priori | Date/Time | Associated Diagnosis | Comments | | | ty | | | | + +--------+ + + + | VAS CAROTID DUPLEX | Routin | 12/06/2014 | | Results for this | | BILATERAL | e | 3:29 PM | | procedure are in the | | | | PST | | results section. | + +--------+ + + + documented in this encounter Results VAS Carotid Duplex Bilateral (12/06/2014 3:29 PM PST) + + | Specimen | + + | | + + + + + | Impressions | Performed At | + + + | 1. 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 to | | | this modality Grades: 1 Stenosis =01-30% PSV | | | <125 cm/sec EDV (cm/s)<40 cm/sec (mild plaque) 2 | | | Stenosis =31-50% PSV <125 cm/sec EDV (cm/s)<40 cm/sec | | | (moderate plaque) 3 Stenosis =50-69% PSV >125 cm/sec | | | EDV (cm/s)>40 cm/sec 4 Stenosis =70-95% PSV >230 | | | cm/sec EDV (cm/s)>100 cm/sec 5 Stenosis =90-95% PSV | | | <125 cm/sec EDV (cm/s)<40 cm/sec 6 Stenosis Occluded | | | | | | 4:01 PM | | + + + + + + | Narrative | Performed At | + + + | HISTORY:59-year-old male with a ischemic episode, vasculopathy | | | TECHNIQUE: Ultrasound of the carotid and vertebral artery systems. | | | Duplex examination with interrogation with color flow and waveforms | | | with Doppler technique Prior study for comparison, none. | | | FINDINGS: Analysis of the right. Proximal CCA -- 82 Distal | | | CCA -- 82 Proximal ICA -- 72 Mid ICA -- 75 Distal ICA -- 82 | | | Proximal ECA -- 81 Antegrade vertebral artery flow is identified | | | -- 34 Analysis of the left. Proximal CCA -- 85 Distal CCA -- | | | 77 Proximal ICA -- 71 Mid ICA -- 103 Distal ICA -- 81 Proximal ECA | | | -- 74 Antegrade vertebral artery flow is identified -- 48 All | | | measurements are in cm/sec. No diastolic elevations Wave forms are | | | normal in rate and rhythm and appearance. On visual inspection, | | | vessels demonstrate some plaque, but no high-grade complex or | | | preocclusive lesion. True duplex examination documenting normal | | | spectral analysis as well as color flow as expected for the arterial | | | structures of the neck. | | + + + + + | Procedure Note | + + | Lemuel, Rad Conversion - 06/15/2019 11:50 PM PDT HISTORY:59-year-old male with a | | ischemic episode, vasculopathy TECHNIQUE: Ultrasound of the carotid and vertebral artery | | systems. Duplex examination with interrogation with color flow and waveforms with | | Doppler techniquePrior study for comparison, none. FINDINGS: Analysis of the right. | | Proximal CCA -- 82Distal CCA -- 82Proximal ICA -- 72Mid ICA -- 75Distal ICA -- | | 82Proximal ECA -- 81 Antegrade vertebral artery flow is identified -- 34 Analysis of the | | left. Proximal CCA -- 85Distal CCA -- 77Proximal ICA -- 71Mid ICA -- 103Distal ICA -- | | 81Proximal ECA -- 74 Antegrade vertebral artery flow is identified -- 48 All | | measurements are in cm/sec. No diastolic elevationsWave forms are normal in rate and | | rhythm and appearance. On visual inspection, vessels demonstrate some plaque, but no | | high-grade complex or preocclusive lesion. True duplex examination documenting normal | | spectral analysis as well as color flow as expected for the arterial structures of the | | neck. IMPRESSION: 1. 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 to | | this modality Grades:1 Stenosis =01-30% PSV <125 cm/sec EDV (cm/s)<40 | | cm/sec (mild plaque)2 Stenosis =31-50% PSV <125 cm/sec EDV (cm/s)<40 cm/sec | | (moderate plaque)3 Stenosis =50-69% PSV >125 cm/sec EDV (cm/s)>40 cm/sec4 | | Stenosis =70-95% PSV >230 cm/sec EDV (cm/s)>100 cm/sec5 Stenosis =90-95% | | PSV <125 cm/sec EDV (cm/s)<40 cm/sec6 Stenosis Occluded Electronically | | signed by Bowen Root MD on 12/06/2014 4:01 PM | | | |Proximal CCA -- 85 | |Distal CCA -- 77 | |Proximal ICA -- 71 | |Mid ICA -- 103 | |Distal ICA -- 81 | |Proximal ECA -- 74 | | | |Antegrade vertebral artery flow is identified -- 48 | | | |All measurements are in cm/sec. No diastolic elevations | |Wave forms are normal in rate and rhythm and appearance. | | | |On visual inspection, vessels demonstrate some plaque, but no high-grade complex or preoccl usive lesion. True duplex examination documenting normal spectral analysis as well as color flow as expected for the arterial structures of the neck. | | | |IMPRESSION: | | | |1. 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 to this modality | | | | | | | |Grades: | |1 Stenosis =01-30% PSV <125 cm/sec EDV (cm/s)<40 cm/sec (mild plaque) | |2 Stenosis =31-50% PSV <125 cm/sec EDV (cm/s)<40 cm/sec (moderate plaque) | |3 Stenosis =50-69% PSV >125 cm/sec EDV (cm/s)>40 cm/sec | |4 Stenosis =70-95% PSV >230 cm/sec EDV (cm/s)>100 cm/sec | |5 Stenosis =90-95% PSV <125 cm/sec EDV (cm/s)<40 cm/sec | |6 Stenosis Occluded | | | | | | | | | + + documented in this encounter Visit Diagnoses Not on filedocumented in this encounter"
--- OUTSIDE RECORDS SUMMARY | ~2020-08-12 | XMS | Clinical Summary ---
Demographics + + + | Address | [address] | | | [place] [address] | + + + | Home Phone | | + + + | Preferred Language | Unknown | + + + | Marital Status | | + + + | Samaritan Affiliation | Unknown | + + + | Race | White | + + + | Ethnic Group | Not or | + + + Author + + + | Author | [facility] | | | and [place] | + + + | Organization | [facility] | | | and [place] | + + + | Address | Unknown | + + + | Phone | Unavailable | + + + Support + + + + + | Name | Relationship | Address | Phone | + + + + + | Nannette Ramsey | ECON | [address] | | | | [address] [place], | | | | | [place] [address] | | + + + + + Care Team Providers + +------+ + | Care Structures Engineer Name | Role | Phone | + +------+ + | Josie Moffett PA-C | PCP | | + +------+ + Allergies Not on File Medications Not on file Active Problems Not on file Social History + +-------+ +--------+------+ | Tobacco [...] on file | | + + + Last Filed Vital Signs Not on file Plan of Treatment + + +-------+ + | Health Maintenance | Due Date | Last | Comments | | | | Done | | + + +-------+ + | Vaccine: | | | | | Dtap/Tdap/Td (1 - | 2 | | | | Tdap) | | | | + + +-------+ + | Vaccine: Zoster (1 | | | | | of 2) | 3 | | | + + +-------+ + | Vaccine: | | | | | Pneumococcal 65+ (1 | 8 | | | | of 1 - PPSV23) | | | | + + +-------+ + | Vaccine: Influenza | | | | | (#1) | 0 | | | + + +-------+ + Results Not on filefrom Last 3 Months Insurance + +--------+ +--------+ +---------+------+ | Payer | Benefi | Subscriber | Effect | Phone | Address | Type | | | t Plan | ID | vini | | | | | | / | | Dates | | | | | | Group | | | | | | + +--------+ +--------+ +---------+------+ | [employer] | HEALTH | [id number] | 06/25/20 | [phone] | | PPO | | | COMP | | 07-Pre | 7 | | | | | PPO | | sent | | | | + +--------+ +--------+ +---------+------+ + +--------+ +--------+ + + | Guarantor Name | Accoun | Relation to | Date | Phone | Billing Address | | | t Type | Patient | of | | | | | | | | | | + +--------+ +--------+ + + | Julio Ramsey | Person | Self | [birth year] [address] | | [address] | | 1955 | [phone] | [address] [place], | | | [place] | | | [address] (Home) | [place] [address] | + +--------+ +--------+ + + Advance Directives + + + + + | Type | Date Recorded | Patient | Explanation | | | | Plumber And Tinner | | + + + + + | Power of | | | | | Flight Crew Time Clerk | | | | + + + + + | Advance | | | | | Directive | | | | + + + + +"
--- OUTSIDE RECORDS SUMMARY | ~2020-08-12 | XMS | Encounter Summary ---
Demographics + + + | Address | [address] | | | [place] [address] | + + + | Home Phone | | + + + | Preferred Language | Unknown | + + + | Marital Status | | + + + | Orthodox Affiliation | Unknown | + + + | Race | White | + + + | Ethnic Group | Not or | + + + Author + + + | Author | [facility] | | | and [place] | + + + | Organization | [facility] | | | [...] [place], | | | | | [place] [address] | | + + + + + Care Team Providers + +------+ + | Care Banana Handler Name | Role | Phone | + +------+ + PCP | Unavailable | + +------+ + Encounter Details +--------+ + + + + | Date | Type | Department | Care Team | Description | +--------+ + + + + | 03/30/ | Hospital | [facility] | [place], | | | 2012 - | Encounter | [facility] | Marisol Bergmanin, | | | | | CARE FLOOR [address] | [address] | | | 04/01/ | | DEREJE ZEPEDA | [place], [place] | | | 2012 | | [place], [place] | [address] | | | | | [address] | [phone] | | | | | [phone] | | | +--------+ + + + [...] 1328 Date of Service: 04/01/13923 Status: Signed Medical Research Scientist: Marisol Pedraza MD (Physician) Related Notes: Original Note by Marisol Pedraza MD (Physician) filed at 04/01/13 09 25 DIAGNOSIS Acute anterior myocardial infarction. REASON FOR ADMISSION This is a 57-year-old white male with no prior medical history who began experiencing subst ernal heaviness earlier on the day of admission, presented to the emergency room in [facility]. He was shown to have an ST elevation anterior NE. He was heparinized, placed on a nitrogl [...] Notes by Morenita Sandhu RN at 04/01/13 1208 Author: Morenita Sandhu RN Service: (none) Author Type: Registered Nurse Filed: 04/01/13 1210 Date of Service: 04/01/13 120 Status: Signed Medical Research Scientist: Morenita Sandhu RN (Registered Nurse) Discharge information reviewed with patient and family, all parties verbalized yamilkain g. Pt being discharged to private home via private vehicle in stable condition. Silvestre RN onver romain Transaction, Provider Unknown - 03/31/2013 10:15 AM PDT Progress Notes by Morenita Sandhu RN at 03/31/13 1015 Author: Morenita Sandhu RN Service: (none) Author Type: Registered Nurse Filed: 03/31/13 1016 Date of Service: 03/31/13 1015 Status: Signed Medical Research Scientist: Morenita Sandhu RN (Registered Nurse) Pt with 8 beats VTACH asymptomatic will continue to monitor. Silvestre RN arisol Pedraza MD - 03/31/2013 8:38 AM PDT Progress Notes by Marisol Pedraza MD at 03/31/13 0838 Author: Marisol Pedraza MD Service: (none) Author Type: Physician Filed: 03/31/13 0839 Date of Service: 03/31/13 0838 Status: Signed Medical Research Scientist: Marisol Pedraza MD (Physician) Feels well. NO CP. PK >4000. Increase activity. VSS onversion Transaction, Provider Unknown - 03/30/2013 8:09 PM PDTFormatting of this note might be dif ferent from the original. Progress Notes by Rodolfo Faye RPH at 03/30/132008 Author: Rodolfo Faye RPH Service: (none) Author Type: Pharmacist Filed: 03/30/132008 Date of Service: 03/30/132008 Status: Signed Medical Research Scientist: Rodolfo Faye RPH (Pharmacist) Note ccl 63.1ml/min meds reviewed Pharmacy will follow rdc 2008 Marisol Byrd MD - 03/30/2013 6:46 PM PDT Progress Notes by Marisol Pedraza MD at 03/30/131845 Author: Marisol Pedraza MD Service: (none) Author Type: Physician Filed: 03/30/131845 Date of Service: 03/30/131845 Status: Signed Medical Research Scientist: Marisol Pedraza MD (Physician) Cath done and dictated. MARCO A to LAD documented in this encounter H&P Notes Marisol Pedraza MD - 03/30/2013 5:58 PM PDTFormatting of this note might be dif ferent from the original. H&P signed by Marisol Pedraza MD at 03/31/13835 Author: Marisol Pedraza MD Service: (none) Author Type: Physician Filed: 03/31/13835 Date of Service: 03/30/131757 Status: Signed Medical Research Scientist: Marisol Pedraza MD (Physician) SHELDONROBERTAJENNIE WONG Date of : 1955 CHIEF COMPLAINT Chest pain. HISTORY OF PRESENT ILLNESS This is a 57-year-old white male with no prior medical history who began experiencing subst ernal heaviness earlier today. He presented to the emergency room in [place]. He was shown to have an ST elevation anterior NE. He was heparinized and put on a nitroglycerin drip wit h some improvement in his chest discomfort, and transported here by ambulance. He is still h aving ongoing chest pain so he is being taken straight to the catheterization lab. PAST MEDICAL HISTORY He states is limited to skin cancer. CURRENT MEDICATIONS None. ALLERGIES NONE. HABITS He is a smoker. He states he started when he was very young, so we are looking at 45 to 50 years. He does not drink alcohol. SOCIAL HISTORY He is , with healthy children. FAMILY HISTORY Negative for premature coronary disease. PHYSICAL EXAMINATION Deferred. ELECTROCARDIOGRAM ECG shows sinus rhythm, acute anterior myocardial infarction. IMPRESSION Acute anterior myocardial infarction. PLAN/DISPOSITION Urgent cardiac catheterization. P/ P/dylan/[id number] MARISOL PEDRAZA MD documented in this encounter Plan of Treatment [...] | | | | | | ACUTE NE / STEMI | | | | | [...] + + | Historically converted procedure from [facility] environment | EXTERNAL LAB | + + [...] | upon this. DESCRIPTION OF PROCEDURE A 6-Singaporean XB LAD 3.5 guide | | | catheter was placed in the left main coronary os and an 0.014 Medical File Clerk | | | 50 guidewire was advanced down the left anterior descending with | | | considerable difficulty. When I had felt that I had crossed the | | | lesion I took a 2 x 15 mm Felt angioplasty balloon and crossed about | | [...] Note | + + | Avinash Hdez Conversion - 06/16/2019 6:31 PM PDT | [...] | DESCRIPTION OF PROCEDURE | | A 6-Singaporean XB LAD 3.5 guide catheter was placed in the left main coronary | | os and an 0.014 Medical File Clerk 50 guidewire was advanced down the left anterior | | descending with considerable difficulty. When I had felt that I had | | crossed the lesion I took a 2 x 15 mm Felt angioplasty balloon and crossed | | about [...] | upon this. DESCRIPTION OF PROCEDURE A 6-Singaporean XB LAD 3.5 guide | | | catheter was placed in the left main coronary os and an 0.014 Medical File Clerk | | | 50 guidewire was advanced down the left anterior descending with | | | considerable difficulty. When I had felt that I had crossed the | | | lesion I took a 2 x 15 mm Felt angioplasty balloon and crossed about | | [...] + + | Lemuel, Rad Conversion - 06/16/2019 6:31 PM PDT | [...] | DESCRIPTION OF PROCEDURE | | A 6-Singaporean XB LAD 3.5 guide catheter was placed in the left main coronary | | os and an 0.014 Medical File Clerk 50 guidewire was advanced down the left anterior | | descending with considerable difficulty. When I had felt that I had | | crossed the lesion I took a 2 x 15 mm Felt angioplasty balloon and crossed | | about [...]
--- OUTSIDE RECORDS SUMMARY | ~2020-08-12 | XMS | Encounter Summary ---
Demographics + + + | Address | [address] | | | [place] [address] | + + + | Home Phone | | + + + | Preferred Language | Unknown | + + + | Marital Status | | + + + | Baptist Affiliation | Unknown | + + + | Race | White | + + + | Ethnic Group | Not or | + + + Author + + + | Author | [facility] | | | and [place] | + + + | Organization | [facility] | | | and [...] [place], | | | | | [place] [address] | | + + + + + Care Team Providers + +------+ + | Care Senior Systems Developer Name | Role | Phone | + +------+ + | Josie Moffett PA-C | PCP | | + +------+ + Encounter Details +--------+ + + + + | Date | Type | Department | Care Team | Description | +--------+ + + + + | 12/06/ | Orders Only | [facility] | Joseluis Shaffer MD | | | 2015 | | VASCULAR SURGERY | [address] | | | | | [address] | [place], [place] | | | | | [address] [place] | [address] | | | | | [place], [place] | [phone] | | | | | [address] | | | | | | [phone] | | | +--------+ + + + [...]
[~2020-08-12 12:27] MED LIST changes: +ATORVASTATIN CA20 MG PO; +CYCLOBENZAPRINE10 MG PO; +METOPROLOL TART25 MG PO; +TRAZODONE HCL50 MG PO; +WARFARIN SODIUM5 MG PO
== END 2020-08-12 16:44 | disposition home or self-care (01) ==
LOC: ED 12:27
DX: R18.8 Other ascites (principal); D68.9 Coagulation defect, unspecified; I25.2 Old myocardial infarction; F17.200 Nicotine dependence, unspecified, uncomplicated; Z79.899 Other long term (current) drug therapy; Z79.01 Long term (current) use of anticoagulants; Z85.828 Personal history of other malignant neoplasm of skin
CPT/HCPCS: 74177; 80053; 81001; 83690; 83735; 85025; 85610; 99284-25; Q9967